=== PATIENT | female | born 1955 | race Caucasian/White ===

== ENCOUNTER 2019-04-04 20:26 | Inpatient (IN) | payer OTHER ==
[2019-04-04] MEDS ORDERED: ACETAMINOPHEN 325 MG TAB PO (22:30)
[2019-04-04] MEDS ORDERED: ONDANSETRON 4 MG INJ IV (22:30)
[2019-04-04] MEDS ORDERED: morphine 2 MG INJ IV (22:30)
[2019-04-04] MEDS: DEXTROSE 5%-0.9% NACL 1,000 ML IV (23:20)
[2019-04-04] MEDS: CEFTRIAXONE 1 GM/50 ML (PMX) 50 ML IVPB (23:20)
[2019-04-05 05:00] LABS: ADD MAN DIFF? NO
[2019-04-05 05:08] LABS: BASOPHILS % 0.5 % (0.0-2.0); EOSINOPHILS # 0.1 10^3/ul (0.0-0.5); EOSINOPHILS % 1.1 % (0.0-7.0); HEMATOCRIT 34.7 % (37.0-47.0); LYMPHOCYTES # 2.4 10^3/ul (0.8-2.9); LYMPHOCYTES % 30.5 % (15.0-51.0); MEAN CORPUSCULAR HEMOGLOBIN 28.5 pg (29.0-33.0); MEAN CORPUSCULAR HGB CONC 31.7 g/dl (32.0-37.0); MEAN CORPUSCULAR VOLUME 89.9 fl (82.0-101.0); MONOCYTE # 0.7 10^3/ul (0.3-0.9); MONOCYTES % 8.6 % (0.0-11.0); NEUTROPHIL # 4.7 10^3/ul (1.6-7.5); PLATELET COUNT 323 10^3/UL (140-415); RED BLOOD COUNT 3.86 10^6/ul (4.20-5.40)
[2019-04-05 05:08] LABS: WHITE BLOOD COUNT 7.9 10^3/ul (4.8-10.8)
[2019-04-05 05:21] LABS: ALANINE AMINOTRANSFERASE 21 IU/L (13-69); ALBUMIN 3.8 g/dl (3.3-4.9); ALBUMIN/GLOBULIN RATIO 1.08; ALKALINE PHOSPHATASE 83 IU/L (42-121); ANION GAP 8 (5-13); ASPARTATE AMINO TRANSFERASE 27 IU/L (15-46); BILIRUBIN,INDIRECT 0.9 mg/dl (0-1.1); BILIRUBIN,TOTAL 0.9 mg/dl (0.2-1.3); BLOOD UREA NITROGEN 16 mg/dl (7-20); CALCIUM 9.3 mg/dl (8.4-10.2); CARBON DIOXIDE 27 mmol/L (21-31); CHLORIDE 109 mmol/L (97-110); Estimated GFR > 60 mL/min (>60); GLUCOSE 108 mg/dl (70-220); POTASSIUM 3.6 mmol/L (3.5-5.1); SODIUM 144 mmol/L (135-144); TOTAL PROTEIN 7.3 g/dl (6.1-8.1)
[2019-04-05] MEDS: PANTOPRAZOLE 40 MG INJ IV (06:14)
[2019-04-05] MEDS: DEXTROSE 5%-0.9% NACL 1,000 ML IV (11:42)
[2019-04-05 13:19] LABS: INR 1.05; PROTIME 13.8 Sec (11.9-14.9); PT RATIO 1.1
[2019-04-05] MEDS: CEFTRIAXONE 1 GM/50 ML (PMX) 50 ML IVPB ×2 (22:30→23:00)
[2019-04-06] MEDS: DEXTROSE 5%-0.9% NACL 1,000 ML IV ×2 (01:10→06:10)
[2019-04-06 05:39] LABS: WHITE BLOOD COUNT 7.6 10^3/ul (4.8-10.8)
[2019-04-06 05:39] LABS: ADD MAN DIFF? NO; BASOPHILS % 0.4 % (0.0-2.0); EOSINOPHILS # 0.1 10^3/ul (0.0-0.5); EOSINOPHILS % 1.1 % (0.0-7.0); HEMATOCRIT 35.5 % (37.0-47.0); HEMOGLOBIN 11.2 g/dl (12.0-16.0); LYMPHOCYTES # 2.2 10^3/ul (0.8-2.9); LYMPHOCYTES % 28.5 % (15.0-51.0); MEAN CORPUSCULAR HEMOGLOBIN 28.4 pg (29.0-33.0); MEAN CORPUSCULAR HGB CONC 31.5 g/dl (32.0-37.0); MEAN CORPUSCULAR VOLUME 90.1 fl (82.0-101.0); MEAN PLATELET VOLUME 10.2 fl (7.4-10.4); MONOCYTE # 0.6 10^3/ul (0.3-0.9); MONOCYTES % 7.5 % (0.0-11.0); NEUTROPHIL # 4.7 10^3/ul (1.6-7.5); NEUTROPHILS % 62.2 % (39.0-77.0); PLATELET COUNT 314 10^3/UL (140-415); RED BLOOD COUNT 3.94 10^6/ul (4.20-5.40); RED CELL DISTRIBUTION WIDTH 13.8 % (11.5-14.5)
[2019-04-06 05:58] LABS: HEMOGLOBIN A1C 5.6 % (0-5.9)
[2019-04-06 06:35] LABS: ALANINE AMINOTRANSFERASE 23 IU/L (13-69); ALBUMIN 3.7 g/dl (3.3-4.9); ALBUMIN/GLOBULIN RATIO 1.08; ALKALINE PHOSPHATASE 81 IU/L (42-121); ANION GAP 8 (5-13); ASPARTATE AMINO TRANSFERASE 31 IU/L (15-46); BILIRUBIN,INDIRECT 1.1 mg/dl (0-1.1); BILIRUBIN,TOTAL 1.1 mg/dl (0.2-1.3); BLOOD UREA NITROGEN 15 mg/dl (7-20); CALCIUM 9.2 mg/dl (8.4-10.2); CARBON DIOXIDE 26 mmol/L (21-31); CHLORIDE 109 mmol/L (97-110); CREATININE 0.81 mg/dl (0.44-1.00); Estimated GFR > 60 mL/min (>60); GLUCOSE 106 mg/dl (70-220); POTASSIUM 3.6 mmol/L (3.5-5.1); SODIUM 143 mmol/L (135-144); TOTAL PROTEIN 7.1 g/dl (6.1-8.1)
[2019-04-06] MEDS: LEVOTHYROXINE 100 MCG TAB PO (06:46)
[2019-04-06] MEDS: PANTOPRAZOLE 40 MG INJ IV (06:46)
[2019-04-07] MEDS ORDERED: PANTOPRAZOLE (EC) 40 MG TAB PO (06:00)
== END 2019-04-06 20:12 | disposition home or self-care (01) | DRG 446 ==
LOC: MS1 20:26
DX: K80.20 Calculus of gallbladder without cholecystitis without obstruction (principal); K83.8 Other specified diseases of biliary tract; I10 Essential (primary) hypertension; E66.9 Obesity, unspecified; D64.9 Anemia, unspecified; K76.0 Fatty (change of) liver, not elsewhere classified; E03.9 Hypothyroidism, unspecified; Z98.51 Tubal ligation status; Z68.33 Body mass index [BMI] 33.0-33.9, adult
CPT/HCPCS: 74181; 80053; 83036; 85025; 85610

== ENCOUNTER 2019-06-19 10:35 | Day surgery (SDC) | payer OTHER ==
[~2019-06-19 10:35] MED LIST: CEFAZOLIN 2 GM/50 ML (PMX) 50 ML IVPB
[2019-06-19] MEDS: SOD CHLORIDE 0.9% 1,000 ML IV (11:18)
[2019-06-19] MEDS ORDERED: LABETALOL HCL 20MG INJ IV (15:30)
[2019-06-19] MEDS ORDERED: MEPERIDINE 25 MG INJ IV (15:30)
[2019-06-19] MEDS ORDERED: OXYCODONE/ACETAMINOPHEN (5/325) TAB PO ×2 (15:30)
[2019-06-19] MEDS ORDERED: hydrALAzine 20 MG INJ IV (15:30)
[2019-06-19] MEDS ORDERED: DIPHENHYDRAMINE 50 MG INJ IV (15:30)
[2019-06-19] MEDS ORDERED: FENTAnyl 50 MCG/ML VIAL IV ×3 (15:30)
[2019-06-19] MEDS ORDERED: HYDROmorphONE 1 MG/5 ML IV SYRINGE IV ×3 (15:30)
[2019-06-19] MEDS ORDERED: PROPOFOL 20 ML (15:46)
[2019-06-19] MEDS ORDERED: ONDANSETRON 4 MG INJ (15:46)
[2019-06-19] MEDS ORDERED: ROPIVACAINE 0.5 % 30 ML VIAL (15:46)
[2019-06-19] MEDS ORDERED: ROCURONIUM 50 MG INJ (15:46)
[2019-06-19] MEDS ORDERED: METOCLOPRAMIDE 10 MG INJ (15:46)
[2019-06-19] MEDS: BUPIVACAINE 0.25% (MPF) 30 ML INJ (16:15)
[2019-06-19] MEDS ORDERED: GLYCOPYRROLATE 0.4 MG INJ (16:19)
[2019-06-19] MEDS ORDERED: NEOSTIGMINE 3 MG/3 ML SYRINGE (16:19)
[2019-06-19] MEDS ORDERED: CEFAZOLIN 1 GM INJ (16:19)
[2019-06-19] MEDS ORDERED: HYDROmorphONE 2 MG/ML SYG (16:19)
[2019-06-19] MEDS ORDERED: HYDROCODONE/APAP (5/325) TAB PO ×2 (17:00)
[2019-06-19] MEDS ORDERED: KETOROLAC 30 MG INJ IV (17:00)
[2019-06-19] MEDS ORDERED: morphine 2 MG INJ IV (17:00)
[2019-06-19] MEDS ORDERED: IBUPROFEN 600 MG TAB PO (17:00)
[2019-06-19] MEDS ORDERED: ONDANSETRON 4 MG INJ IV (17:00)
[2019-06-19] MEDS ORDERED: DEXAMETHASONE 4 MG/ML 1 ML INJ (17:38)
[2019-06-19] MEDS ORDERED: ALBUTEROL 0.083% (NEB) 2.5 MG/3 ML AMP (17:46)
[2019-06-19] MEDS: ALBUTEROL/IPRATROPIUM (NEB) 3 ML AMP HHN (17:51)
[2019-06-19] MEDS: DEXAMETHASONE 10 MG/ML 1 ML INJ IV (18:39)
[2019-06-19] MEDS: ONDANSETRON 4 MG INJ IV (18:43)
== END 2019-06-19 19:45 | disposition home or self-care (01) ==
LOC: SDS 10:35
DX: K80.10 Calculus of gallbladder with chronic cholecystitis without obstruction (principal); I10 Essential (primary) hypertension; E03.9 Hypothyroidism, unspecified
CPT/HCPCS: 47562; 88304; 94664